=== PATIENT | male | born 1980 | race Caucasian/White ===

== ENCOUNTER 2017-08-07 14:23 | Emergency (ER) | payer SELFPAY ==
[2017-08-07 14:24] VITALS: BP 135/92; PULSE 67; RESP 16; TEMP 36.5; O2SAT 100; BMI 31.6
--- NOTE | 2017-08-07 14:28 | RAD_ITS ---
STUDY: X-RAY - RIGHT HAND REASON FOR EXAM: Male, 36 years old. Worsening pain following recent injury. TECHNIQUE: 3 view(s) of the hand. COMPARISON: None. FINDINGS: Normal radiocarpal articulation. Normal distal radioulnar joint. Questionable avulsion fracture of the triquetrum. Clinical correlation is recommended. Normal carpal articulations Normal carpometacarpal articulation of the thumb. Normal second through fifth carpometacarpal joints. Normal metacarpi. Normal metacarpophalangeal joint of the thumb. Normal interphalangeal joint of the thumb. Normal proximal and distal phalanges of the thumb. Normal metacarpophalangeal joints of the second through fifth fingers. Normal proximal and distal interphalangeal joints of the second through fifth fingers. Normal phalanges of the second through fifth fingers. The soft tissue structures are unremarkable. RAD/Hand Min 3 Views IMPRESSION: Questionable avulsion fracture of the triquetrum. Clinical correlation is recommended. Electronically Signed: Julio Renteria MD at 15:12 EST Tel [phone], Service support ,
[2017-08-07] MEDS: Naproxen 500 MG Tablet PO (15:12)
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
== END 2017-08-07 16:17 | disposition home or self-care (01) ==
PROVIDERS: Emergency Provider Emergency Medicine
DX: S62.111A Displaced fracture of triquetrum [cuneiform] bone, right wrist, initial encounter for closed fracture (principal); W23.0XXA Caught, crushed, jammed, or pinched between moving objects, initial encounter; Y93.9 Activity, unspecified; Y92.9 Unspecified place or not applicable; Y99.9 Unspecified external cause status; Z72.0 Tobacco use; Z79.899 Other long term (current) drug therapy
CPT/HCPCS: 29125; 73130; 99282

== ENCOUNTER 2018-11-09 16:20 | Emergency (ER) | payer SELFPAY ==
[2018-11-09 16:21] VITALS: BP 121/75; PULSE 83; RESP 16; TEMP 36.1; O2SAT 97; BMI 28.8
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
[2018-11-09 16:24] VITALS: O2SAT 97
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
--- NOTE | 2018-11-09 18:02 | ED.DCSUM_ITS ---
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 Today he was at work and suddenly felt the need to cough and had a prolonged episode of coughing, that resulted in a small amount of blood at the end. States this made the pain worse but he was concerned about the blood as well. During this, he felt a pop in the area that he already was having pain in. He denies any dyspnea. No pain elsewhere. Past Medical History - Allergies and Home Meds Allergies/Adverse Reactions: Allergies No Known Allergies Allergy (Verified 11/09/18 16:21) Primary Care Physician: Care Physician,No Primary [Primary Care Provider] - Surgical History: no surgical history Smoking Status: Former smoker Drugs: None - Family History Maternal Family History: Reports: Heart Disease - at young ages Review of Systems Cardiovascular: Denies: Chest pain, Palpitations Respiratory: Reports: Cough, Sputum. Denies: Dyspnea Gastrointestinal: Denies: Abdominal pain, Nausea, Vomiting Musculoskeletal: Denies: Swelling, Extremity Pain Skin: Denies: Rash, Wounds Physical Exam Vital Signs/Narrative: Vital Signs Temp Pulse Resp BP Pulse Ox 11/09/18 16:24 97 11/09/18 16:21 97 F L 83 16 121/75 H 97 Inital Vital Signs reviewed: Yes General: Well nourished, Well developed, No Acute Distress - conversing in full sentences Head: Normocephalic, Atraumatic Eyes: Perrl, EOMI Neck: Supple, Nontender Cardiovascular: Regular rate, Regular rhythm, No murmurs. Negative for: Tachycardia Respiratory: No distress, CTA bilaterally, Chest nontender Abdomen: Soft, Nontender, Nondistended, Normal bowel sounds Back: Normal Inspection, - - Point tenderness on a rib in left mid-posterior, almost lateral near axilla, thoracic wall. No crepitance or subcutaneous emphysema, no palpable step-off.. Negative for: Spinal tenderness Extremities: Nontender, No edema. Negative for: Calf Tenderness Skin: Normal color, No rash, No Trauma Neurological: Alert, Oriented x3, Cranial nerves II-XII grossly intact, Normal Strength, Normal Sensation Psychological: Normal affect, Normal Mood Diagnostic/Tx/Re-eval Clinical Impression(s) from Imaging Studies Ribs w/Chest X-Ray 11/09/18 16:23 IMPRESSION: RIBS: Normal x-ray examination of the ribs. CHEST: Normal x-ray examination of the chest. Electronically Signed: Fran Gavin MD at 16:56 EDT , Service support , - Medical Decision Making Given symptoms x-rays were obtained, there is no evidence of pneumothorax, displaced rib fracture, pulmonary contusion, or nodule/mass. He is reassured. It is possible that the minor amount of hemoptysis is unrelated to his injury, and was simply from a significant episode of bronchospasm which he described. I advised that he perform symptom Medicare with analgesics and ice as needed, he denies any further prescription and is given ibuprofen here and will follow-up. ED Disposition - Plan for ED Patient: Disposition: Home or Assisted Living Diagnosis: Contusion of rib on left side Instructions: ED Contusion Vs Minor Fx Rib Referrals: Madelaine Clemons [NON-STAFF] - 1 Week if not improving
[2018-11-09] MEDS: Ibuprofen 600 MG Tablet PO (18:12)
[2018-11-09 18:14] VITALS: BP 124/75; PULSE 78; RESP 16; O2SAT 98
== END 2018-11-09 18:17 | disposition home or self-care (01) ==
PROVIDERS: Emergency Provider Emergency Medicine
DX: S20.212A Contusion of left front wall of thorax, initial encounter (principal); R04.2 Hemoptysis; X58.XXXA Exposure to other specified factors, initial encounter; Y93.9 Activity, unspecified; Y92.9 Unspecified place or not applicable; Y99.9 Unspecified external cause status; Z79.899 Other long term (current) drug therapy; Z87.891 Personal history of nicotine dependence
CPT/HCPCS: 71101; 94760; 99282

== ENCOUNTER 2019-12-03 09:55 | Emergency (ER) | payer SELFPAY ==
[2019-12-03 09:56] VITALS: BP 125/78; PULSE 84; RESP 15; TEMP 36.8; O2SAT 97; BMI 32.6
--- NOTE | 2019-12-03 10:44 | EKG12_ITS ---
Test Reason : CP Blood Pressure : / mmHG Vent. Rate : 081 BPM Atrial Rate : 081 BPM P-R Int : 160 ms QRS Dur : 088 ms QT Int : 346 ms P-R-T Axes : 041 015 014 degrees QTc Int : 401 ms Normal sinus rhythm Normal ECG Confirmed by DIXON SALAS ([id number]), editor department ROD SANDOVAL ([id number]) on 12/06/2019 11:08:04 AM Referred By: GIACOMO Confirmed By:DIXON SALAS
--- NOTE | 2019-12-03 10:45 | ED.VIS.CHEST ---
History of Present Illness Chief Complaint: Chest Pain Informant: Patient Onset: Month(s) - 02-13 Activity at onset: Light Activity, Rest Timing: Intermittent, Lasts - brief Quality: - - Piercing Location: Right Chest - Without radiation Current Severity: Gone Maximum Severity: Severe Worsened By: Nothing. Not Worsened By: Breathing, Coughing Relieved By: Nothing Associated Symptoms: Nausea, Diaphoresis - Last night, Dyspnea - Brief gasp for air associated with each and every brief chest pain episode, Cough - Starting last night, Fever - Last night, 100.3 by his measurement; resolved this morning on multiple measurements. Negative for: Vomiting, Lightheadedness, Palpitations Narrative: Patient states he has been having these symptoms since last summer. He came in today because last night he had an episode and then he started sweating. He took a hot shower, was still sweating and he thought it was out of proportion for the shower that he took. States he was coughing a lot, nonproductive, that started yesterday 2. He had a fever of 100.3 yesterday but that resolved without treatment. He works in a warehouse, he has been having headaches that he has had in the past, they are described as piercing, central forehead occasionally radiating to the back of his head, associated with photophobia and nausea. That is been worse in the past 2 or 3 days, moderate currently. No leg pain or swelling, recent immobilization or travel, history of heart problems, and states that he was admitted here for something similar last year and had a stress test that was negative and thinks that he had an episode of the discomfort during the stress test. He has no other past medical problems. - Past Medical History (1) Depression Status: Chronic (2) Generalized anxiety disorder Status: Chronic (3) Panic attacks Status: Chronic Past Medical History - Allergies and Home Meds Allergies/Adverse Reactions: Allergies No Known Allergies Allergy (Verified 12/03/19 09:58) Primary Care Physician: Care Physician,No Primary [Primary Care Provider] - Surgical History: no surgical history Smoking Status: Former smoker Drugs: Marijuana - Family History Maternal Family History: Reports: Heart Disease - at young ages Review of Systems General: Denies: Chills, Fever, Sweats Eyes: Reports: Visual changes - bilaterally - Brief when headache was bad, seeing a couple spots. Denies: Diplopia ENT: Denies: Rhinorrhea, Sore throat Cardiovascular: Reports: Chest pain. Denies: Palpitations, Heart racing Respiratory: Reports: Dyspnea, Cough. Denies: Sputum, Dyspnea on exertion, Orthopnea Gastrointestinal: Denies: Abdominal pain, Nausea, Vomiting, Diarrhea, Melena, Hematochezia Genitourinary: Denies: Dysuria, Hematuria, Frequency Musculoskeletal: Denies: Neck pain, Back pain, Swelling, Extremity Pain Skin: Denies: Rash, Wounds Neurological: Reports: Headache. Denies: Weakness, Numbness Physical Exam Vital Signs/Narrative: Vital Signs Temp Pulse Resp BP Pulse Ox 12/03/19 09:56 98.2 F 84 15 125/78 H 97 Inital Vital Signs reviewed: Yes General: Well nourished, Well developed, No Acute Distress Head: Normocephalic, Atraumatic Eyes: Perrl, EOMI - Without pain or palsy, - - No significant photophobia ENT: Moist mucous membranes, No rhinorrhea, TM's clear, - - Posterior oropharynx is clear. Negative for: Sinus tenderness Neck: Supple, Nontender, No lymphadenopathy, No JVD Cardiovascular: Regular rate, Regular rhythm, No murmurs Respiratory: No distress, CTA bilaterally, Chest nontender Abdomen: Soft, Nontender, Nondistended, Normal bowel sounds Back: Nontender, Normal Inspection Extremities: Nontender, No edema. Negative for: Calf Tenderness Skin: Normal color, No rash, No Trauma Neurological: Alert, Oriented x3, Cranial nerves II-XII grossly intact, Normal Strength, Normal Sensation, Normal Gait Psychological: Normal affect, Normal Mood Diagnostic/Tx/Re-eval Impressions Chest X-Ray 12/03/19 11:24 IMPRESSION: Focal left basilar infiltrate. Electronically Signed: Julio Renteria, at 11:36 EDT , Service support , 12/03/19 11:24 Chest 1 View (Portable) [RAD] Stat Laboratory Results 12/03/19 12/03/19 12/03/19 11:10 11:10 11:10 WBC 6.8 RBC 4.88 Hgb 14.3 Hct 43.4 MCV 88.9 MCH 29.3 MCHC 32.9 RDW Std Deviation 40.2 RDW Coeff of Estefani 12.3 Plt Count 205 MPV 11.1 Immature Gran % (Auto) 0.100 Neut % (Auto) 70.0 Lymph % (Auto) 18.6 L [place] % (Auto) 9.8 Eos % (Auto) 0.9 Baso % (Auto) 0.6 Absolute Neuts (auto) 4.8 Absolute Lymphs (auto) 1.27 Nucleated RBC % 0 D-Dimer Quant (PE/DVT) 0.28 Sodium 139 Potassium 3.9 Chloride 104 Carbon Dioxide 30.0 Anion Gap 5 BUN 10 Creatinine 1.02 Estim Creat Clear Calc 94.07 Est GFR (MDRD) Af Amer 105 Est GFR (MDRD) Non-Af 86 BUN/Creatinine Ratio 9.8 L Glucose 98 Calcium 8.7 Troponin I < 0.015 - Rhythm Strip Rhythm Strip: Sinus Rhythm Rate: 81 Ectopy: None - EKG Initial EKG Interpretation: Sinus Rhythm, No Acute Injury Pattern - Normal EKG MONTY Risk: No Positive MONTY Elements Score: 0 - Medical Decision Making Patient had no recurrent symptoms while he was here. His work-up shows a small pneumonia in the left lower lobe, no reason to suspect this is due to coronavirus with his ancillaries and history. 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 I discussed with the [facility], currently he does not meet testing criteria for outpatient testing there. He does not need to be admitted here. Our lab is using the [facility] criteria with our limited supply of reagent. Therefore he will be placed on Levaquin and advised to follow-up with Dr. spence he does not have a primary care doctor. He will be referred to the next one on the unassigned list. With regards to his intermittent chest discomfort, his work-up is unremarkable, I do not think this is cardiac however he could be related to cardiac ectopy but he did not have the symptoms here, and we did not record any telemetry events. ED Disposition - Plan for ED Patient: Disposition: Home or Assisted Living Diagnosis: Pneumonia, Intermittent chest pain Instructions: ED Chest Pain NonCardiac, ED PNEUMONITIS Adult Prescriptions: levoFLOXacin tablet [Levaquin tablet] 750 mg PO DAILY #4 tab Prescription Printed Referrals: Ramsey Bhardwaj MD [STAFF PHYSICIAN] - 3-5 Days
[2019-12-03 11:01] VITALS: O2SAT 98
[2019-12-03 11:05] VITALS: BP 123/76; PULSE 81; RESP 15; TEMP 36.8; O2SAT 98
[2019-12-03 11:19] LABS: Absolute Lymphocyte Count 1.27 X10^3/uL (0.83-4.51); Absolute Neutrophil Count 4.8 X10^3/uL (2.0-7.7); Basophil# 0.04 X10^3/uL; Basophil% 0.6 % (0-1); Eosinophil# 0.06 X10^3/uL; Eosinophils% 0.9 % (0-5); Hematocrit 43.4 % (40-54); Hemoglobin 14.3 g/dL (13.0-16.5); Lymphocyte # 1.27 X10^3/ul (4.0); Lymphocyte % 18.6 % (19-41); Mean Corp Hgb Conc 32.9 g/dL (32-36); Mean Corpuscular Hgb 29.3 pg (27.0-32.0); Mean Corpuscular Volume 88.9 fL (80-94); Mean Platelet Vol. 11.1 fl (6.2-12.0); Monocyte# 0.67 X10^3/uL; Monocyte% 9.8 % (0-10); NRBC Flagged by Analyzer 0 % (0-5); Neutrophil # 4.79 X10^3/uL (2.7-7.7); Platelet Count 205 K/mm3 (150-450); RBC Distribution Width CV 12.3 % (11.6-14.6); RBC Distribution Width SD 40.2 fl (35.1-43.9); Red Blood Count 4.88 M/mm3 (4.6-6.2); White Blood Count 6.8 K/mm3 (4.4-11.0)
--- NOTE | 2019-12-03 11:24 | RAD_ITS ---
STUDY: X-RAY CHEST REASON FOR EXAM: Male, 39 years old. CHEST PAIN, LAST NIGHT FEVER WITH COUGH AND CHILLS TECHNIQUE: Single AP portable view of the chest. COMPARISON: Comparison is made with prior examination dated November 09, 2018. FINDINGS: EKG electrodes are seen. Focal infiltrate is seen at the left lung base. There is no demonstrated pleural abnormality. Normal size heart. Normal mediastinum and león. Normal visualized pulmonary arteries. Normal visualized aortic arch and descending thoracic aorta. Normal visualized thoracic spine. Normal visualized ribs, clavicles, and shoulders. There is no demonstrated abnormality of the visualized soft tissue structures of the upper abdomen. RAD/Chest 1 View (Portable) IMPRESSION: Focal left basilar infiltrate. Electronically Signed: Julio Renteria, at 11:36 EDT , Service support ,
[2019-12-03 11:34] LABS: Anion Gap 5 (5-15); BUN 10 mg/dL (7-18); BUN/Creat Ratio 9.8 RATIO (10-20); Calcium,Total 8.7 mg/dL (8.5-10.1); Chloride 104 mmol/L (98-107); Creatinine, Serum 1.02 mg/dL (0.70-1.30); EST Glomerular Filtration Rate 86 mL/min (>60); Est Glom Filt Rate - Afr Amer 105 mL/min (>60); Estimated Creatinine Clearance 94.07 ml/min; Glucose 98 mg/dL (74-106); Potassium 3.9 mmol/L (3.5-5.1); Sodium Level 139 mmol/L (136-145)
[2019-12-03 11:39] LABS: D-Dimer Quantitative (DVT/PE) 0.28 FEU/ug/m (0.27-0.49)
[2019-12-03] MEDS: Metoclopramide 10 MG/2 ML Vial 5 MG IV (11:51)
[2019-12-03] MEDS: Ketorolac 30 MG/ML Syringe IV (11:52)
[2019-12-03 11:54] VITALS: BP 128/74; PULSE 77; RESP 18; O2SAT 95
[2019-12-03] MEDS: levoFLOXacin 750 MG Tablet PO (12:01)
== END 2019-12-03 12:13 | disposition home or self-care (01) ==
PROVIDERS: Emergency Provider Emergency Medicine
DX: J18.9 Pneumonia, unspecified organism (principal); F32.9 Major depressive disorder, single episode, unspecified; F41.1 Generalized anxiety disorder; F41.0 Panic disorder [episodic paroxysmal anxiety]; Z79.899 Other long term (current) drug therapy; Z87.891 Personal history of nicotine dependence; Z82.49 Family history of ischemic heart disease and other diseases of the circulatory system
CPT/HCPCS: 71045; 80048; 84484; 85025; 85379; 93005; 96374; 96375; 99285; A4216

== ENCOUNTER 2020-02-28 09:26 | Emergency (ER) | payer SELFPAY ==
[2020-02-28 09:27] VITALS: BP 136/85; PULSE 77; RESP 17; TEMP 36.6; O2SAT 97; BMI 34.2
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
[2020-02-28] MEDS: Ondansetron ODT 4 MG Tablet 8 MG PO (10:01)
== END 2020-02-28 11:03 | disposition home or self-care (01) ==
PROVIDERS: Emergency Provider Emergency Medicine
DX: S06.0X0A Concussion without loss of consciousness, initial encounter (principal); S20.222A Contusion of left back wall of thorax, initial encounter; S30.0XXA Contusion of lower back and pelvis, initial encounter; S40.212A Abrasion of left shoulder, initial encounter; M54.2 Cervicalgia; V89.2XXA Person injured in unspecified motor-vehicle accident, traffic, initial encounter; Y93.9 Activity, unspecified; Y92.9 Unspecified place or not applicable; Y99.9 Unspecified external cause status; Z87.891 Personal history of nicotine dependence
CPT/HCPCS: 70450; 72125; 72170; 99283

== ENCOUNTER 2020-04-16 16:57 | Emergency (ER) | payer SELFPAY ==
[2020-04-16 16:59] VITALS: BP 135/85; PULSE 95; RESP 18; TEMP 36.8; O2SAT 98; BMI 34.4
--- NOTE | 2020-04-16 18:10 | ED.DCSUM_ITS ---
History of Present Illness Chief Complaint: Complaint Informant: Patient Onset: Days Context: Gradual Onset Timing: Waxes and wanes Current Severity: Moderate Maximum Severity: Moderate Narrative: Patient presents with dysuria, back pain, chills. He has noted difficulty urinating and pain with urination for the past couple of days. No discoloration to the urine. He reports noticing some wounds to the crotch area. No discharge from the penis. No measured fever but he has had chills. - Past Medical History (1) Generalized anxiety disorder Status: Chronic Past Medical History - Allergies and Home Meds Allergies/Adverse Reactions: Allergies No Known Allergies Allergy (Verified 04/16/20 16:58) Primary Care Physician: Care Physician,No Primary [Primary Care Provider] - Surgical History: no surgical history Lives: Spouse/ Significant Other Smoking Status: Current every day smoker - Family History Maternal Family History: Reports: Heart Disease - at young ages Review of Systems General: Reports: Chills. Denies: Fever Eyes: Denies: Visual changes - bilaterally ENT: Denies: Bilateral ear pain Cardiovascular: Denies: Chest pain Respiratory: Denies: Dyspnea, Cough Gastrointestinal: Reports: Abdominal pain. Denies: Nausea, Vomiting Genitourinary: Reports: Dysuria Musculoskeletal: Reports: Back pain Skin: Denies: Rash Hematologic: Denies: Easy bruising, Easy bleeding Allergy: Denies: Uticaria Physical Exam Vital Signs/Narrative: Vital Signs Temp Pulse Resp BP Pulse Ox 04/16/20 16:59 98.2 F 95 18 135/85 H 98 Inital Vital Signs reviewed: Yes General: Well nourished, Well developed Head: Normocephalic ENT: Moist mucous membranes Neck: Supple Cardiovascular: Regular rate, Regular rhythm Respiratory: No distress, CTA bilaterally Abdomen: Soft, Nontender : - - 3 focal areas of folliculitis over the base of the penis. No penile discharge. No tenderness over the testicles. No scrotal lesions noted. Back: CVA tenderness Extremities: Nontender Skin: Normal color Neurological: Alert, Oriented x3 Psychological: Normal affect Diagnostic/Tx/Re-eval Impressions Abdomen/Pelvis CT 04/16/20 18:43 IMPRESSION: 1. Subcentimeter probable cyst of the right hepatic lobe. 2. Colonic diverticulosis with no evidence of associated diverticulitis. 3. There is a small dense radiopacity in the cecum appearing to represent a capsule. 4. Small fat-containing left inguinal hernia. 5. There is no evidence of nephro or ureterolithiasis, hydronephrosis, or hydroureter. No free intra-abdominal or intrapelvic air, fluid, or inflammatory process is seen. Electronically Signed: Bandar Ch MD at 19:17 EDT , Service support , 04/16/20 18:43 Abdomen/Pelvis without Cont [CT] Stat Laboratory Results 04/16/20 17:10 Urine Color Yellow Urine Clarity Sl. Cloudy Urine pH 7.0 Ur Specific [place] 1.010 Urine Protein 15 H Urine Glucose (UA) Normal Urine Ketones Negative Urine Occult Blood 10 H Urine Nitrite Negative Urine Bilirubin Negative Urine Urobilinogen Normal Ur Leukocyte Esterase Negative Urine RBC 0 SEEN Urine WBC 0 SEEN Ur Squamous Epith Cells 0 SEEN Urine Bacteria 0 SEEN Urine Mucus 0 SEEN - Medical Decision Making Urinalysis does not show sign of infection. GC and Chlamydia tests were sent and are still pending at this time. Because the patient had so much back pain associated he is taken for a CT scan. This reveals no evidence of kidney stones. Patient be treated with Rocephin and doxycycline. He will also be given Pyridium to help numb the bladder. He is referred to urology for follow- up as needed. ED Disposition - Plan for ED Patient: Disposition: Home or Assisted Living Diagnosis: Urethritis, Folliculitis Instructions: Urethritis in Men Prescriptions: Doxycycline 100 mg PO BID #14 cap Transmission Status: Pending to [email or web address] Phenazopyridine HCl [Pyridium] 200 mg PO BID PRN PRN #10 tab PRN Reason: Pain Transmission Status: Pending to [facility] Referrals: Kamran Holman MD [STAFF PHYSICIAN] - As Needed
[2020-04-16 18:30] VITALS: BP 135/85; PULSE 95; RESP 18; TEMP 36.8; O2SAT 98
[2020-04-16 18:30] LABS: Bacteria 0 SEEN /hpf (None Seen); Mucous, Urine 0 SEEN /hpf (<or=2+); Red Blood Cells-Urine 0 SEEN /hpf (0-5); Squamous Epithelial Cells - UA 0 SEEN /hpf (0-5); White Blood Cells 0 SEEN /hpf (0-5)
[2020-04-16 18:33] LABS: Color, Urine Yellow (Yellow); Glucose, Dipstick Normal (Normal); Ketone-Dipstick Negative (Negative); Leukocyte Esterase-Dipstick Negative /ul (Negative); Nitrite-Dipstick Negative (Negative); Occult Blood-Urine 10 /ul (Negative); Protein-Dipstick 15 mg/dl (Negative); Urine Bilirubin Dipstick Negative (Negative); Urine Clarity Sl. Cloudy (Clear); Urine Urobilinogen Normal (Normal)
--- NOTE | 2020-04-16 18:43 | CT_ITS ---
STUDY: CT ABDOMEN AND PELVIS WITHOUT CONTRAST REASON FOR EXAM: Male, 39 years old. DYSURIA AND BILATERAL FLANK PAIN. PRIOR HERNIA SURGERY RADIATION DOSAGE (If Supplied By Facility): CTDIvol = ( 14.97 ) mGy, DLP = ( 759.23 ) mGycm TECHNIQUE: Transaxial images were obtained from the dome of the diaphragm to the symphysis pubis without oral contrast, and without intravenous contrast. Sagittal and coronal images were reconstructed. Individualized dose optimization techniques were used for this CT. COMPARISON: None. FINDINGS: The visualized lung bases are unremarkable. The visualized portions of the heart are within normal limits. There is a subcentimeter probable cyst of the right hepatic lobe. The gallbladder is contracted. Normal spleen. Normal pancreas. Normal bilateral adrenal glands. Normal right kidney. Normal left kidney. Normal visualized stomach. Normal small intestine. There is colonic diverticulosis with no evidence of associated diverticulitis. There is a small dense radiopacity in the cecum. The appendix is visualized and appears normal. Normal abdominal aorta. Normal inferior vena cava. Normal retroperitoneum. Normal urinary bladder. There is a fat-containing left inguinal hernia. Normal osseous structures. CT/Abdomen/Pelvis without Cont IMPRESSION: 1. Subcentimeter probable cyst of the right hepatic lobe. 2. Colonic diverticulosis with no evidence of associated diverticulitis. 3. There is a small dense radiopacity in the cecum appearing to represent a capsule. 4. Small fat-containing left inguinal hernia. 5. There is no evidence of nephro or ureterolithiasis, hydronephrosis, or hydroureter. No free intra-abdominal or intrapelvic air, fluid, or inflammatory process is seen. Electronically Signed: Bandar Ch MD at 19:17 EDT , Service support ,
[2020-04-16] MEDS: Doxycycline 100 MG CAPSULE PO (19:55)
[2020-04-16] MEDS: Phenazopyridine 95 MG Tablet 190 MG PO (19:55)
[2020-04-16 20:00] LABS: Chlamydia Trachomatis by PCR Negative (Negative); Neisserai gonorrhoeae by PCR Negative (Negative); Probe Check PASS; Sample Adequacy Control PASS; Specimen Processing Control PASS
[2020-04-16] MEDS: Ceftriaxone 500 MG Vial 250 MG IM (20:07)
[2020-04-16] MEDS: Naproxen 500 MG Tablet PO (20:07)
[2020-04-16 20:11] VITALS: TEMP 38.1
== END 2020-04-16 20:12 | disposition home or self-care (01) ==
PROVIDERS: Emergency Provider Emergency Medicine
DX: N34.2 Other urethritis (principal); L73.9 Follicular disorder, unspecified; M54.9 Dorsalgia, unspecified; F17.200 Nicotine dependence, unspecified, uncomplicated
CPT/HCPCS: 74176; 81001; 87491; 87591; 96372; 99283

== ENCOUNTER 2020-04-19 16:20 | Emergency (ER) | payer SELFPAY ==
[2020-04-19 16:22] VITALS: BP 128/74; PULSE 86; RESP 17; TEMP 36.3; O2SAT 96; BMI 35.7
[2020-04-19 16:24] VITALS: BP 128/74; PULSE 85; RESP 17; TEMP 36.3; O2SAT 96
--- NOTE | 2020-04-19 16:41 | ED.VIS.GEN ---
History of Present Illness Chief Complaint: Complaint Informant: Patient Narrative: 39-year-old male with no significant past medical history presents with concern for dysuria. States is been present for 4 to 5 days. States it is intermittent in nature. States that he previously had back pain when he was seen here in the emergency department but that is since resolved. Patient was treated with doxycycline and Rocephin with concern for STI. Patient has since had negative gonorrhea and chlamydia. Patient states that he did have lesions towards the base of his penis which he felt were folliculitis and did drain a small amount of clearish white fluid. States that they have since crusted over. Denies any fever, chills, abdominal pain. Denies any penile discharge. Denies any scrotal pain. Past Medical History - Allergies and Home Meds Allergies/Adverse Reactions: Allergies No Known Allergies Allergy (Verified 04/19/20 16:21) Primary Care Physician: Care Physician,No Primary [Primary Care Provider] - Prior records reviewed: Yes Past Medical History: None Surgical History: no surgical history Lives: With Family Smoking Status: Former smoker Alcohol: None Drugs: None - Family History Maternal Family History: Reports: Heart Disease - at young ages Review of Systems General: Denies: Chills, Fever, Sweats Eyes: Denies: Visual changes - bilaterally, Diplopia ENT: Denies: Rhinorrhea, Sore throat Cardiovascular: Denies: Chest pain, Palpitations Respiratory: Denies: Dyspnea, Cough, Dyspnea on exertion Gastrointestinal: Denies: Abdominal pain, Nausea, Vomiting, Diarrhea, Melena, Hematochezia Genitourinary: Reports: Dysuria. Denies: Hematuria, Frequency Musculoskeletal: Denies: Back pain, Extremity Pain Skin: Denies: Rash, Wounds Neurological: Denies: Headache, Weakness, Numbness Physical Exam Vital Signs/Narrative: Vital Signs Temp Pulse Resp BP Pulse Ox 04/19/20 16:24 97.3 F L 85 17 128/74 H 96 04/19/20 16:22 97.3 F L 86 17 128/74 H 96 General: Well nourished, Well developed, No Acute Distress Head: Normocephalic, Atraumatic Eyes: Perrl, EOMI ENT: Moist mucous membranes, No rhinorrhea Neck: Supple, Nontender Cardiovascular: Regular rate, Regular rhythm, No murmurs Respiratory: No distress, CTA bilaterally, Chest nontender Abdomen: Soft, Nontender, Nondistended, Normal bowel sounds : - - Crusted ulcerous lesions at the base of the penis. No abscess or active drainage. Back: Nontender, Normal Inspection Extremities: Nontender, No edema Skin: Normal color, No rash Neurological: Alert, Oriented x3, Cranial nerves II-XII grossly intact, Normal Strength, Normal Sensation Psychological: Normal affect, Normal Mood Diagnostic/Tx/Re-eval Laboratory Data 04/19/20 17:45 Urine Color June Urine Clarity Clear Urine pH 6.0 Ur Specific [place] 1.020 Urine Protein 15 H Urine Glucose (UA) Normal Urine Ketones 5 H Urine Occult Blood 10 H Urine Nitrite Positive H Urine Bilirubin 3 H Urine Urobilinogen 8 H Ur Leukocyte Esterase Negative Urine RBC 0-5 SEEN Urine WBC 0-5 SEEN Ur Squamous Epith Cells 0 SEEN Urine Bacteria 1+ Urine Mucus 0 SEEN - Medical Decision Making Appears well and nontoxic. Vital signs within normal limits. Patient does have lesions at the base of his penis concerning for HSV versus syphilis. Patient be given injection 2,400,000 units of penicillin G as well as started on acyclovir. Patient also has a urinalysis positive for nitrites. Patient will be started on Keflex and advised to stop taking his doxycycline. Urine will be sent for culture. Patient asked to return for any abdominal pain, fever, chills. Advised to abstain from sexual activity until his results can be reported for his HIV, syphilis, and HSV. Patient agreeable and discharged home in stable condition. Impression: 1. Dysuria 2. Penile lesions 3. UTI ED Disposition - Plan for ED Patient: Disposition: Home or Assisted Living Instructions: ED Urethritis Infec Vs Inflam Adult Male Prescriptions: Acyclovir 1 tab PO TID #21 tab Prescription Printed Cephalexin [Keflex] 500 mg PO Q6 #40 cap Prescription Printed Referrals: Storm Anaya MD [STAFF PHYSICIAN] - 2 Days Additional Instructions: Please also keep appointment with urologist.
[2020-04-19 17:53] LABS: Mucous, Urine 0 SEEN /hpf (<or=2+); Squamous Epithelial Cells - UA 0 SEEN /hpf (0-5)
[2020-04-19 18:09] LABS: Color, Urine Amber (Yellow); Glucose, Dipstick Normal (Normal); Ketone-Dipstick 5 mg/dl (Negative); Leukocyte Esterase-Dipstick Negative /ul (Negative); Nitrite-Dipstick Positive (Negative); Occult Blood-Urine 10 /ul (Negative); Protein-Dipstick 15 mg/dl (Negative); Urine Clarity Clear (Clear); Urine Urobilinogen 8 mg/dl (Normal)
[2020-04-19 18:24] LABS: Urine Bilirubin Dipstick 3 mg/dL (Negative)
[2020-04-19 18:33] LABS: Bacteria 1+ /hpf (None Seen); Red Blood Cells-Urine 0-5 SEEN /hpf (0-5); White Blood Cells 0-5 SEEN /hpf (0-5)
[2020-04-19] MEDS: Cephalexin 250 MG Capsule 500 MG PO (19:32)
[2020-04-19 19:46] LABS: HIV - WCH Non-Reactive (Nonreactive)
[2020-04-19] MEDS: Acyclovir 200 MG Capsule 400 MG PO (19:52)
[2020-04-19] MEDS: Penicillin G Benzathine 2.4 MU/4 ML Syringe IM (19:53)
[2020-04-19 19:58] VITALS: BP 126/68; PULSE 81; RESP 18; O2SAT 96
[2020-04-20 01:45] LABS: Rapid Plasmin Reagin (RPR) NONREACTIVE (NONREACTIVE)
[2020-04-22 20:07] LABS: HSV 1 By PCR Negative (Negative)
[2020-04-23 09:55] LABS: HSV 2 By PCR Positive (Negative)
== END 2020-04-19 20:11 | disposition home or self-care (01) ==
PROVIDERS: Emergency Provider Emergency Medicine
DX: N39.0 Urinary tract infection, site not specified (principal); N48.9 Disorder of penis, unspecified; Z87.891 Personal history of nicotine dependence
CPT/HCPCS: 36415; 81001; 86592; 86703; 87086; 87529; 96372; 99281; 99283

== ENCOUNTER 2020-05-30 01:59 | Emergency (ER) | payer SELFPAY ==
[2020-05-30 02:01] VITALS: BP 132/95; PULSE 78; RESP 19; TEMP 35.8; O2SAT 99; BMI 34.9
--- NOTE | 2020-05-30 02:08 | EKG12_ITS ---
Test Reason : GEN ILL Blood Pressure : / mmHG Vent. Rate : 076 BPM Atrial Rate : 076 BPM P-R Int : 180 ms QRS Dur : 092 ms QT Int : 368 ms P-R-T Axes : 041 008 006 degrees QTc Int : 414 ms Normal sinus rhythm Normal ECG Confirmed by MAGDA BRICEÑO, SCOTT ([id number]), graphics editor LYN MAGDALENO ([id number]) on 05/31/2020 10:51:15 AM Referred By: JAMES Confirmed By:SCOTT MAN MD
--- NOTE | 2020-05-30 02:08 | RAD_ITS ---
STUDY: X-RAY CHEST REASON FOR EXAM: Male, 39 years old. C/O DYSPNEA AND CP WHEN TRYING TO GO TO SLEEP FOR THE PAST 2 WEEKS TECHNIQUE: PA and lateral views of the chest. COMPARISON: 12/03/2019 FINDINGS: The lungs are clear and expanded. There is no demonstrated pleural abnormality. Normal size heart. Normal mediastinum and león. Normal visualized pulmonary arteries. Normal visualized aortic arch and descending thoracic aorta. Normal visualized thoracic spine. Normal visualized ribs, clavicles, and shoulders. There is no demonstrated abnormality of the visualized soft tissue structures of the upper abdomen. RAD/Chest PA and Lateral IMPRESSION: Normal x-ray examination of the chest. Electronically Signed: Jagdish Quiles DO at 2:57 EST Tel , Service support ,
--- NOTE | 2020-05-30 02:09 | ED.VIS.GEN ---
History of Present Illness Chief Complaint: General Illness Informant: Patient Narrative: Stated for greater than a year he has intermittent chest twinges at night when he lays down. Today it happened 5 times. Is only when he lays down at nighttime to relax. He stated he will catch his breathing for second and develop a chest twinge that goes away. Wanted to make sure his heart was okay. He has had ER evaluations for this in the past. He has not worn a Holter monitor. Has not seen a specialist. Denies any cardiac history. Denies any symptoms currently. No home treatment. Does have a history of anxiety but does not think it is related to that. Seems to be when he sits back or lays flat. Only last for a second. - Past Medical History (1) Chest pain Status: Acute (2) Depression Status: Chronic (3) Generalized anxiety disorder Status: Chronic (4) Panic attacks Status: Chronic (5) Unable to control anger Status: Chronic Past Medical History - Allergies and Home Meds Allergies/Adverse Reactions: Allergies No Known Allergies Allergy (Verified 05/30/20 01:59) Primary Care Physician: Care Physician,No Primary [Primary Care Provider] - Prior records reviewed: Yes Past Medical History: - - See problem list Surgical History: no surgical history Smoking Status: Current some day smoker Alcohol: None Drugs: None - Family History Maternal Family History: Reports: Heart Disease - at young ages Review of Systems General: Denies: Chills, Fever, Sweats Eyes: Denies: Visual changes - bilaterally, Diplopia ENT: Denies: Rhinorrhea, Sore throat Cardiovascular: Reports: Chest pain. Denies: Palpitations Respiratory: Denies: Dyspnea, Cough, Dyspnea on exertion Gastrointestinal: Denies: Abdominal pain, Nausea, Vomiting, Diarrhea, Melena, Hematochezia Genitourinary: Denies: Dysuria, Hematuria, Frequency Musculoskeletal: Denies: Back pain, Extremity Pain Skin: Denies: Rash, Wounds Neurological: Denies: Headache, Weakness, Numbness Physical Exam Vital Signs/Narrative: Vital Signs Temp Pulse Resp BP Pulse Ox 05/30/20 02:01 96.5 F L 78 19 H 132/95 H 99 General: Well nourished, Well developed, No Acute Distress Head: Normocephalic, Atraumatic Eyes: Perrl, EOMI ENT: Moist mucous membranes, No rhinorrhea Neck: Supple, Nontender Cardiovascular: Regular rate, Regular rhythm, No murmurs Respiratory: No distress, CTA bilaterally, Chest nontender Abdomen: Soft, Nontender, Nondistended, Normal bowel sounds Back: Nontender, Normal Inspection Extremities: Nontender, No edema Skin: Normal color, No rash Neurological: Alert, Oriented x3, Cranial nerves II-XII grossly intact, Normal Strength, Normal Sensation Psychological: Normal affect, Normal Mood Diagnostic/Tx/Re-eval - Medical Decision Making Given ibuprofen. Chest x-ray and EKG obtained. This x-ray and EKG showed nothing acute. EKG shows normal sinus rhythm at a rate of 76 with no ischemia or arrhythmia by my interpretation. Chest x-ray was read by myself as an interpretation of negative. Patient will follow-up as an outpatient for intermittent chest twinges. I do not feel this is cardiac PE or dissection or other emergent cause ED Disposition - Plan for ED Patient: Disposition: Home or Assisted Living Diagnosis: Chest pain at rest Instructions: ED Chest Pain NonCardiac Referrals: Storm Anaya MD [STAFF PHYSICIAN] -
[2020-05-30] MEDS: Ibuprofen 400 MG Tablet 800 MG PO (02:13)
[2020-05-30 03:06] VITALS: BP 117/85; PULSE 74; RESP 19; O2SAT 96
== END 2020-05-30 03:11 | disposition home or self-care (01) ==
PROVIDERS: Emergency Provider Emergency Medicine
DX: R07.9 Chest pain, unspecified (principal); F17.200 Nicotine dependence, unspecified, uncomplicated
CPT/HCPCS: 71046; 93005; 99283

== ENCOUNTER 2021-03-11 15:43 | Emergency (ER) | payer SELFPAY ==
[2021-03-11 15:44] VITALS: BP 141/92; PULSE 77; RESP 16; TEMP 36.8; O2SAT 98; BMI 32.3
--- NOTE | 2021-03-11 15:49 | RAD_ITS ---
EXAM: XR CHEST, 1 VIEW : 1980 CLINICAL INDICATION: cough TECHNIQUE: Frontal view of the chest. This report was created using [id number] report generation technology. COMPARISON: 05/30/2020 FINDINGS: LUNGS AND PLEURAL SPACES: Unremarkable. No consolidation or edema. No pneumothorax. No effusion. HEART: Unremarkable. Cardiac silhouette not enlarged. MEDIASTINUM: Central airways and mediastinal contour are unremarkable. BONES/JOINTS: Unremarkable. SOFT TISSUES: Unremarkable. RAD/Chest 1 View (Portable) IMPRESSION: No radiographic evidence of acute cardiopulmonary disease. at 1645 Reported and signed by: Julius Zimmer MD Electronically Signed: Julius Zimmer MD at 16:44 EDT Tel , Service support ,
--- NOTE | 2021-03-11 17:10 | EDS_ITS ---
HPI History of Present Illness Chief Complaint: Cold Sx Informant: patient Narrative Narrative: Patient is a 40-year-old male presenting with concern for Covid. Patient states his girlfriend started having Covid symptoms yesterday including lack of taste and smell. They have been at the hospital visiting his girlfriend's mother and were around patients that had Covid. He is not his Covid vaccine. Patient states that he has had headache for the past few days and some mild shortness of breath. He has a dry cough. He notes that he has a little bit of a catch in his breathing and discomfort. He denies any fever but is been feeling warm. No nausea or vomiting. No other complaints at this time. [facility] Home Medications NK 05/30/20 [History Last Taken Unknown] Allergy/AdvReac Type Severity Reaction Status Date / Time No Known Allergies Allergy Verified 03/11/21 15:43 Social History Smoking Status: Current some day smoker tobacco type: cigarettes ROS ROS ED Constitutional Constitutional ED: Reports other Details: Feeling warm ; Denies chills or fever(s) Eyes Eyes: Denies blurry vision or change in vision ENT ENT ED: Denies ear pain, rhinorrhea or sore throat Cardiovascular Cardiovascular: Reports chest pain; Denies palpitations Respiratory/Chest Respiratory/Chest: Reports cough and dyspnea; Denies dyspnea on exertion or sputum Gastrointestinal Gastrointestinal: Denies abdominal pain, nausea or vomiting Genitourinary Genitourinary ED: Denies dysuria or hematuria Musculoskeletal Musculoskeletal: Denies arthralgias or myalgias Integumentary Denies rash Neurologic Neurologic: Reports headache(s); Denies weakness Psychiatric Psychiatric: Denies anxiety or depression EXAM Physical Exam Const Vital Signs: 03/11/21 15:44 Temperature 98.3 F Temperature Source Temporal Pulse Rate 77 Respiratory Rate 16 Blood Pressure 141/92 H Blood Pressure Mean 108 Pulse Ox 98 Oxygen Delivery Method Room Air Positive well nourished, well developed and no apparent distress General Appearance ED: well developed HEENT Reports normocephalic atraumatic Nose: no nasal discharge External Ear: external ears normal Mouth ED: Yes moist mucous membranes normal Eyes PERRL and EOMs intact bilaterally Neck full ROM and no meningeal signs Chest Wall inspection of chest normal Resp normal respiratory effort and normal air movement Cardio regular rate and regular rhythm GI normal to inspection, nondistended, normoactive bowel sounds Extremity normal to inspection and full ROM Extremity Narrative: Mild crepitus with range of motion of the AC joint of the right shoulder, patient states it has been going on for 6 years Neuro oriented x3 and no focal motor deficits Psych mental status grossly normal and thought process normal Skin no rashes or lesions noted and no wounds MDM MDM MDM Narrative Medical decision making narrative: Patient evaluated for concern for Covid. His vital signs are normal except for mild hypertension. Exam is pretty benign. Chest x-rays not show any acute process. Covid test is negative. Patient be discharged home with quarantine precautions and to get retested at day 5 through 7 of symptoms if he still concern for Covid. I suspect he likely just has a viral illness is causing his symptoms. Radiography Chest X-Ray - ED: 1 View, Read by ED Physician, Read by Radiologist and No Acute Disease Diagnostic Testing: Radiology Impression Chest X-Ray 03/11/21 15:49 IMPRESSION: No radiographic evidence of acute cardiopulmonary disease. at 1645 Reported and signed by: Julius Zimmer MD Electronically Signed: Julius Zimmer MD at 16:44 EDT Tel , Service support , Discharge Plan Triage Chief Complaint: Cold Sx ED Provider: Gris Pena Dx/Rx/DC Orders Clinical Impression: Encounter for laboratory testing for COVID-19 virus, Viral respiratory illness Instructions: Coronavirus Disease 2019 (COVID-19): Caring for Yourself or Others Prescriptions: No Action NK RF: 0 Primary Care Provider: Care Physician,No Primary Referrals: Bella Hassan MD [STAFF PHYSICIAN] - Care Physician,No Primary [Primary Care Provider] - Activity Restrictions/Additional Instructions: Your Covid test was negative today. If you continue to have symptoms please continue to quarantine and retest at day 5-7 with symptoms as is possibly could have a false negative today. Return with any worsening concerns. Disposition Disposition: Home, Self Care
[2021-03-11 17:39] VITALS: BP 138/69; PULSE 72; RESP 16; O2SAT 98
== END 2021-03-11 17:40 | disposition home or self-care (01) ==
PROVIDERS: Emergency Provider Emergency Medicine
DX: Z20.822 Contact with and (suspected) exposure to COVID-19 (principal); J98.9 Respiratory disorder, unspecified; F17.210 Nicotine dependence, cigarettes, uncomplicated
CPT/HCPCS: 71045; 87426; 99282

== ENCOUNTER 2022-06-02 14:16 | Emergency (ER) | payer SELFPAY ==
[2022-06-02 14:17] VITALS: BP 143/86; PULSE 100; RESP 16; TEMP 37.1; O2SAT 100; BMI 34.2
--- NOTE | 2022-06-02 14:48 | EX.ED.DYSGE1 ---
HPI <ZACH Seo Last Filed: 06/02/22 17:22> History of Present Illness Chief Complaint: Other, Pain/Inj Narrative Narrative: 41-year-old male with no past medical history woke up with body aches, nausea, and sore throat this morning at 1 AM. He went to urgent care and they sent off a COVID test but sent him to the ER for a chest x-ray. He states this is because his chest hurt when I push on it but he does not really have a cough or shortness of breath. He is nauseous but has no vomiting, abdominal pain, or diarrhea. PFSH <ZACH Seo Last Filed: 06/02/22 17:22> PFSH Home Medications ondansetron 4 mg disintegrating tablet 4 mg PO Q8H PRN PRN Nausea #10 tabs 06/02/22 [Rx Last Taken Unknown] Allergy/AdvReac Type Severity Reaction Status Date / Time No Known Allergies Allergy Verified 06/02/22 14:42 Surgical History History of hernia repair History of tonsillectomy Social History Smoking Status: Current some day smoker tobacco type: cigarettes ROS <ZACH Seo Last Filed: 06/02/22 17:22> ROS ED ROS Narrative Constitutional: Positive for fever, chills, malaise. Eyes: Negative for visual change. ENT: Positive for sore throat. Negative for rhinorrhea. CVS: Negative for palpitations, chest pain, syncope. Respiratory: Negative for shortness of breath, cough, orthopnea. GI: Positive for nausea. Negative for abdominal pain, vomiting, diarrhea, constipation, melena, hematochezia. : Negative for dysuria, hematuria or frequency. Neuro: Negative for headache, motor/sensory dysfunction. Skin: Negative for rash, abscess, or wound. Musc: Positive for body aches. Heme: Negative for easy bruising, bleeding, lymphadenopathy. EXAM <ZACH Seo Last Filed: 06/02/22 17:22> Physical Exam Narrative Exam Narrative: CONST: Patient sitting in no acute distress. EYES: Normal inspection. ENT: Normal oropharynx, moist mucous membranes. NECK: Normal inspection. No meningismus. RESP: No respiratory distress, CTAB. CVS: Regular rate and rhythm, no murmur, no gallop. ABD: Soft and nontender, no guarding or rebound, nondistended. SKIN: Color normal, no rash, warm, dry, intact. EXTREMITIES: Normal appearance, no pedal edema. NEURO: Oriented x4. PSYCH: Normal affect. Const Vital Signs: 06/02/22 14:17 06/02/22 14:40 Temperature 98.8 F Temperature Source Temporal Pulse Rate 100 Respiratory Rate 16 Respiratory Effort Normal Non-Labored Respiratory Pattern Normal Blood Pressure 143/86 H Blood Pressure Mean 105 Pulse Ox 100 Oxygen Delivery Method Room Air <Dr. Deniz Mcintyre MD - Last Filed: 06/02/22 17:18> Physical Exam Const Vital Signs: 06/02/22 14:17 06/02/22 14:40 Temperature 98.8 F Temperature Source Temporal Pulse Rate 100 Respiratory Rate 16 Respiratory Effort Normal Non-Labored Respiratory Pattern Normal Blood Pressure 143/86 H Blood Pressure Mean 105 Pulse Ox 100 Oxygen Delivery Method Room Air MDM <ZACH Seo - Last Filed: 06/02/22 17:22> [facility] Narrative Medical decision making narrative: Patient presents with myalgias, sore throat, nausea that started this morning. He appears well and nontoxic. Heart rate is 100 with otherwise normal vital signs. His exam is benign. He reports already having a COVID/flu test done this morning at urgent care which is pending. He was treated symptomatically here with Toradol and Zofran and will be prescribed an antiemetic for home with instructions on treating a viral illness. He was discharged in stable condition. <Dr. Deniz Mcintyre MD - Last Filed: 06/02/22 17:18> [facility] Narrative Medical decision making narrative: Patient presents with myalgias, sore throat, nausea that started this morning. He appears well and nontoxic. Heart rate is 100 with otherwise normal vital signs. His exam is benign. He reports already having a COVID/flu test done this morning at urgent care which is pending. He was treated symptomatically here with Toradol and Zofran and will be prescribed an antiemetic for home with instructions on treating a viral illness. I have personally performed a face to face assessment of the patient and have reviewed the RADHA Note. I performed a substantive portion of the visit including all aspects of the following. My gallego findings include: History is [41-year-old male with body aches today lower back pain. Seen at urgent care had a COVID test done awaiting results. Evaluate the patient with our physician financial planning assistant.] Exam is [41-year-old male vital signs stable afebrile. Pulse ox high percent on room air. H EENT exam unremarkable. Neck nontender. No lymphadenopathy. Lungs clear to auscultation bilaterally. Heart regular rhythm no murmur. Abdomen soft nontender. Moving all 4 extremities. Neurovascular intact. Back nontender. Neurologically is awake alert with no focal motor deficits. Very benign exam.] Medical Decision Making [clinically patient has a viral syndrome. He already had a COVID test done at an urgent care he is awaiting those results. He was treated here with Toradol and Zofran by our physician financial planning assistant. He is feeling improved. He is comfortable being discharged home. Treated symptomatically with fluids, rest, Tylenol Motrin. And Zofran as needed.] Other additions or changes: [None] Discharge Plan Triage Chief Complaint: Other, Pain/Inj ED Midlevel Provider: Stephanie Sterling ED Provider: Deniz Mcintyre Dx/Rx/DC Orders Clinical Impression: Acute viral syndrome Instructions: ED Viral Syndrome (Adult) Prescriptions: New ondansetron 4 mg tablet,disintegrating 4 mg PO Q8H PRN PRN (Reason: Nausea) Qty: 10 0RF Primary Care Provider: Care Physician,No Primary Referrals: Care Physician,No Primary [Primary Care Provider] - Activity Restrictions/Additional Instructions: Your symptoms are consistent with a viral illness which is treated with rest, fluids, Tylenol and ibuprofen. You can take 1000 mg of Tylenol every 6 hours and if you need additional relief ibuprofen 600 mg with this. I prescribed Zofran to take as needed for nausea or vomiting. Return if you have difficulty breathing or symptoms worsen. Disposition Disposition: Home, Self Care
[2022-06-02] MEDS: Ketorolac 15 MG/ML Vial IV (15:22)
[2022-06-02] MEDS: Ondansetron ODT 4 MG Tablet PO (15:22)
[2022-06-02 17:30] VITALS: PULSE 94; RESP 17; O2SAT 100
== END 2022-06-02 17:31 | disposition home or self-care (01) ==
PROVIDERS: Emergency Provider Emergency Medicine; Visit Provider Emergency Medicine
DX: B34.9 Viral infection, unspecified (principal); J02.9 Acute pharyngitis, unspecified; R11.0 Nausea; F17.210 Nicotine dependence, cigarettes, uncomplicated
CPT/HCPCS: 96374; 99283

== ENCOUNTER 2023-01-27 18:37 | Emergency (ER) | payer SELFPAY ==
[2023-01-27 18:39] VITALS: BP 121/80; PULSE 80; RESP 14; TEMP 36.7; O2SAT 94; BMI 35.3
--- NOTE | 2023-01-27 18:49 | ED.RN ---
PER Alex JORGE RN. BITE FORM NOT NEEDED FOR SPIDER BITE.
[2023-01-27 18:50] VITALS: BP 121/80; PULSE 80; RESP 14; TEMP 36.7; O2SAT 94
--- NOTE | 2023-01-27 19:00 | EX.ED.VISEXT ---
HPI History of Present Illness Chief Complaint: Bite Detail of Chief Complaint: Lump on left arm Informant: patient Narrative Narrative: Patient presents to the emergency department with concern for spider bite to his left forearm. Patient states that he woke up this morning and noticed a lump on his left forearm. Patient states that years ago he had a spider bite that required hospitalization and he became very sick from it so he wanted to catch it early. Patient states that he was at the [facility] yesterday and its possible he may have been bitten by something there but does not recall an exact time or bite. Patient bumped the forearm today noticed the discomfort and then noticed the swelling. Denies any fevers or chills or sweats. Patient denies illicit drug use or IV drug use. ROS ROS ED Review of Systems ROS Unobtainable: other Constitutional Constitutional ED: Reports lethargy; Denies chills, fever(s), sweats or weight loss Eyes Eyes: Denies blurry vision, change in vision or diplopia ENT ENT ED: Denies rhinorrhea or sore throat Cardiovascular Cardiovascular: Denies chest pain, orthopnea or racing heartbeat Respiratory/Chest Respiratory/Chest: Denies cough, dyspnea, dyspnea on exertion, orthopnea or sputum Gastrointestinal Gastrointestinal: Denies abdominal pain, diarrhea, nausea or vomiting Genitourinary Genitourinary ED: Denies dysuria, hematuria or urinary frequency Musculoskeletal Musculoskeletal: Reports other Details: Left forearm swelling ; Denies arthralgias, back pain, myalgias or neck pain Integumentary Denies abscess, Abrasions or rash Neurologic Neurologic: Denies headache(s) or weakness Psychiatric Psychiatric: Denies anxiety, depression or suicidal thoughts Endocrine Endocrinology: Denies polydipsia, polyphagia or polyuria Hematologic/Lymphatic Hematologic/Lymphatic: Denies easy bleeding, easy bruising or lymphadenopathy Allergic/Immunologic Allergic/Immunologic ED: Denies mouth swelling, tongue swelling or urticaria PFSH PFSH Home Medications ondansetron 4 mg disintegrating tablet 4 mg PO Q8H PRN PRN Nausea #10 tabs 06/02/22 [Rx Last Taken Unknown] cephalexin 500 mg capsule 500 mg PO Q6 #40 CAPSULES 01/27/23 [Rx Last Taken Unknown] doxycycline monohydrate 50 mg capsule 50 mg PO DAILY 01/27/23 [History Last Taken Unknown] Allergy/AdvReac Type Severity Reaction Status Date / Time No Known Allergies Allergy Verified 01/27/23 18:39 Surgical History History of hernia repair History of tonsillectomy Social History Smoking Status: Current some day smoker tobacco type: cigarettes EXAM Physical Exam Const Vital Signs: 01/27/23 18:39 01/27/23 18:50 Temperature 98.1 F 98.1 F Temperature Source Temporal Oral Pulse Rate 80 80 Respiratory Rate 14 14 Blood Pressure 121/80 H 121/80 H Blood Pressure Mean 93 93 Pulse Ox 94 94 Oxygen Delivery Method Room Air Room Air Positive well nourished and well developed General Appearance ED: well developed and NAD HEENT Reports TM's clear and moist mucous membranes normocephalic and atraumatic; Negative for trauma or tenderness Tympanic Membrane ED: Yes TM's clear Eyes PERRL and EOMs intact bilaterally General Eye ED: Negative for pale conjunctiva or scleral icterus Neck no lymphadenopathy, supple and no JVD General: Negative for tenderness Chest Wall inspection of chest normal and palpation of chest normal Chest: Negative for tenderness Resp normal respiratory effort and clear to auscultation bilaterally Effort and Inspection: Negative for respiratory distress or pain with movement Auscultation: Negative for rhonchi, wheezes or diminished lung sounds Cardio regular rate, regular rhythm, S1 normal heart sound, S2 normal heart sound and no murmurs Peripheral Pulses: pulses 2+ throughout GI normal to inspection, nondistended, normoactive bowel sounds, soft to palpation, non-tender, non-distended and no masses Back/Spine no CVA tenderness and no thoracic nor lumbar tenderness Extremity normal to inspection Extremity Narrative: Left forearm-there is a small soft tissue swelling measuring approximately 2 cm in diameter over the dorsal aspect of the left forearm. Nontender to palpation. Minimal erythema. No fluctuance. No significant cellulitic changes. Neurovascular intact distally. General Extremety ED: Negative for edema General Extremity: Negative for edema Neuro oriented x3, CN's II-XII intact bilaterally, no sensory deficits noted and gait normal Sensorium / Orientation: awake, alert, oriented to person, oriented to place and oriented to time Motor Exam: strength 5/5 throughout and strength abnormal Psych mental status grossly normal Skin no rashes or lesions noted and no wounds MDM MDM MDM Narrative Medical decision making narrative: Patient with soft tissue swelling to the forearm. This could represent an insect bite. Clinically I do not feel this is an abscess. This does not require any type of I&D. Will cover with Keflex. Advised to follow-up with primary care physician within next 3 to 5 days. He is to return if increasing pain, redness, swelling, purulent drainage, fever, or condition worsening way. Discharge Plan Triage Chief Complaint: Bite ED Provider: Hitesh Earl Dx/Rx/DC Orders Clinical Impression: Insect bite Instructions: ED Insect Bite Prescriptions: New cephalexin [cephalexin] 500 mg capsule 500 mg PO Q6 Qty: 40 0RF No Action ondansetron 4 mg tablet,disintegrating 4 mg PO Q8H PRN PRN (Reason: Nausea) Qty: 10 0RF doxycycline monohydrate 50 mg capsule 50 mg PO DAILY Patient Comments: TAKE 1 CAPSULE BY MOUTH ONCE DAILY WITH FOOD Primary Care Provider: Care Physician,No Primary Referrals: Nury Soto MD [Med Staff - Wheel Borer] - 3-5 Days Care Physician,No Primary [Primary Care Provider] - Disposition Disposition: Home, Self Care Discharge Date/Time: 01/27/23 19:17
[2023-01-27] MEDS: Cephalexin 250 MG Capsule 500 MG PO (19:15)
== END 2023-01-27 19:17 | disposition home or self-care (01) ==
LOC: ED 19:13
PROVIDERS: Emergency Provider Emergency Medicine; Visit Provider Emergency Medicine
DX: S50.862A Insect bite (nonvenomous) of left forearm, initial encounter (principal); M79.89 Other specified soft tissue disorders; W57.XXXA Bitten or stung by nonvenomous insect and other nonvenomous arthropods, initial encounter; Y92.828 Other wilderness area as the place of occurrence of the external cause; F17.210 Nicotine dependence, cigarettes, uncomplicated
CPT/HCPCS: 99283

== ENCOUNTER 2024-06-25 11:33 | Emergency (ER) | payer SELFPAY ==
[2024-06-25 11:33] VITALS: BP 122/64; PULSE 78; RESP 16; TEMP 36.1; O2SAT 98; BMI 35.4
--- NOTE | 2024-06-25 11:40 | EX.ED.DYSGE1 ---
HPI History of Present Illness Chief Complaint: Nausea/Vomiting Informant: patient Onset/Context/Timing Onset: Today Context: Sudden Onset Timing: Intermittent Quality: Seeing spots Location: Vision Worsened by: Standing up Relieved by: Nothing Narrative Narrative: Patient presents with episode at work today. Patient states he laid down and stretch his back. Patient states that when he stood up he started seeing spots. Patient denies any syncopal episode. Patient states he has had similar episodes while he was exercising in the past but related it to strenuous activity. Patient denies any chest pain or palpitations. Patient denies any shortness of breath or cough. Patient denies any headaches. Patient states he did have an episode of nausea and vomiting. Patient states that he vomited stomach contents. Patient denies any hematemesis or coffee-ground emesis. Patient denies any diarrhea, melena, or hematochezia. [facility] Medical History (Updated 06/25/24 @ 13:[address] Prosper Nava DO) Gout Home Medications ?Medication ?Instructions ?Recorded ?Last Taken ?Type ondansetron 4 mg disintegrating 4 mg PO Q8H PRN PRN Nausea #10 tabs 06/02/22 Unknown Rx tablet cephalexin 500 mg capsule 500 mg PO Q6 #40 CAPSULES 01/27/23 Unknown Rx doxycycline monohydrate 50 mg 50 mg PO DAILY 01/27/23 Unknown History capsule Allergy/AdvReac Type Severity Reaction Status Date / Time No Known Allergies Allergy Verified 06/25/24 11:34 Surgical History History of hernia repair History of tonsillectomy Social History Smoking Status: Current some day smoker tobacco type: cigarettes ROS ROS ED Constitutional Constitutional ED: Reports chills and subjective; Denies fever(s) Eyes Eyes: Reports change in vision bilateral; Denies blurry vision or diplopia ENT ENT ED: Denies rhinorrhea or sore throat Cardiovascular Cardiovascular: Denies chest pain or palpitations Respiratory/Chest Respiratory/Chest: Denies cough or dyspnea Gastrointestinal Gastrointestinal: Reports nausea and vomiting Genitourinary Genitourinary ED: Denies dysuria or hematuria Musculoskeletal Musculoskeletal: Denies back pain or neck pain Integumentary Denies abscess or rash Neurologic Neurologic: Denies headache(s) or weakness Allergic/Immunologic Allergic/Immunologic ED: Denies mouth swelling or urticaria EXAM Physical Exam Const Vital Signs: 06/25/24 11:33 06/25/24 12:57 Temperature 96.9 F L Temperature Source Temporal Pulse Rate 78 Pulse Rate [Lying] 73 Pulse Rate [Sitting (for 1 minute prior to obtaining)] 74 Pulse Rate [Standing (for 1 minute prior to obtaining)] 77 Respiratory Rate 16 Blood Pressure 122/64 H Blood Pressure [Lying] 110/60 Blood Pressure [Sitting (for 1 minute prior to obtaining)] 121/87 H Blood Pressure [Standing (for 1 minute prior to obtaining)] 134/88 H Blood Pressure Mean 83 Blood Pressure Mean [Lying] 76 Blood Pressure Mean [Sitting (for 1 minute prior to obtaining)] 98 Blood Pressure Mean [Standing (for 1 minute prior to obtaining)] 103 Pulse Ox 98 Oxygen Delivery Method Room Air Positive well nourished and well developed General Appearance ED: well developed and NAD HEENT Reports moist mucous membranes Eyes PERRL and EOMs intact bilaterally Neck supple and no JVD Resp normal respiratory effort and clear to auscultation bilaterally Cardio regular rate and regular rhythm GI non-tender and non-distended Palpation: soft Back/Spine no CVA tenderness Thoracic Spine / Upper Back: Negative for thoracic spinal tenderness Lumbar Spine / Lower Back: Negative for lumbar spinal tenderness Extremity normal to inspection General Extremety ED: Negative for edema or tenderness General Extremity: Negative for edema Neuro oriented x3, CN's II-XII intact bilaterally and no sensory deficits noted Sensorium / Orientation: alert Motor Exam: strength 5/5 throughout Psych mental status grossly normal MDM MDM MDM Narrative Medical decision making narrative: Differential diagnosis includes orthostatic hypotension, cardiac dysrhythmia, cardiac ischemia, electrolyte abnormality, dehydration, and viral illness. CBC will be obtained to assess for leukocytosis and anemia. Basic metabolic profile will be obtained to assess for electrolyte abnormality and renal function. COVID-19, influenza, and RSV PCR will be obtained to assess for viral illness. Orthostatic vital signs will be obtained to assess for orthostatic hypotension and dehydration. EKG will be obtained to assess for cardiac dysrhythmia and cardiac ischemia. Lab Data Attestation: I reviewed the patient's lab results. Lab results narrative: CBC was reviewed and was within normal limits. Basic metabolic profile was reviewed and was within normal limits. COVID-19 PCR was reviewed and was positive. Influenza PCR was reviewed and was negative for influenza A and influenza B. RSV PCR was reviewed and was negative. Labs: Laboratory Results - last 24 hr 06/25/24 12:20 WBC 6.5 RBC 4.94 Hgb 14.2 Hct 41.8 MCV 84.6 MCH 28.7 MCHC 34.0 RDW Std Deviation 38.9 RDW Coeff of Estefani 12.8 Plt Count 186 MPV 10.7 Immature Gran % (Auto) 0.300 Neut % (Auto) 75.1 H Lymph % (Auto) 12.6 L [place] % (Auto) 9.8 Eos % (Auto) 1.6 Baso % (Auto) 0.6 Absolute Neuts (auto) 4.9 Absolute Lymphs (auto) 0.81 L Nucleated RBC % 0 Sodium 137 Potassium 4.1 Chloride 105 Carbon Dioxide 28.0 Anion Gap 4 L BUN 14 Creatinine 1.06 Estim Creat Clear Calc 105.80 Est GFR (MDRD) Af Amer 98 Est GFR (MDRD) Non-Af 81 BUN/Creatinine Ratio 13.2 Glucose 90 Calcium 9.0 EKG Initial EKG: Attestation: I personally reviewed and interpreted this EKG as follows: Interpretation: Sinus Rhythm (73) and No Acute Injury Pattern Comments: EKG was obtained. On my independent interpretation, it showed a normal sinus rhythm with a rate of 73. NV interval, QRS interval, and QTc intervals were all normal. [place] was normal. There are no acute ST or T wave changes. Prior EKG tracings: available for review Prior: Unchanged (05/30/2020) Treatment and Re-Evaluation :: Orthostatic vital signs were obtained and were within normal limits. Patient was advised of his findings. Patient was instructed to wear a mask. Patient was instructed to drink plenty of fluids. Patient was instructed to follow-up with his primary care physician in 5 to 7 days. Patient understood and was agreeable with the plan. All questions were answered. Discharge Plan Triage Chief Complaint: Nausea/Vomiting ED Provider: Prosper Nava Dx/Rx/DC Orders Clinical Impression: COVID-19, Elevated blood pressure reading, Marijuana use Instructions: Coronavirus Disease 2019 (COVID-19): Overview Prescriptions: No Action ondansetron 4 mg tablet,disintegrating 4 mg PO Q8H PRN PRN (Reason: Nausea) Qty: 10 0RF doxycycline monohydrate 50 mg capsule 50 mg PO DAILY Patient Comments: TAKE 1 CAPSULE BY MOUTH ONCE DAILY WITH FOOD cephalexin [cephalexin] 500 mg capsule 500 mg PO Q6 Qty: 40 0RF Stand Alone Forms: ED Work / School Excuse Primary Care Provider: Care Physician,No Primary Referrals: Beverley Ovalles MD [Med Staff - Active Staff] - 5-7 Days Care Physician,No Primary [Primary Care Provider] - Print Language: Upper Sorbian Disposition Disposition: Home, Self Care
--- NOTE | 2024-06-25 12:03 | EKG12_ITS ---
Test Reason : Blood Pressure : */* mmHG Vent. Rate : 73 BPM Atrial Rate : 73 BPM P-R Int : 160 ms QRS Dur : 96 ms QT Int : 372 ms P-R-T Axes : 38 9 11 degrees QTcB Int : 409 ms Normal sinus rhythm Normal ECG Confirmed by MAGDA BRICEÑO, SCOTT ([id number]), news assignment editor ADRIEN CHAPPELL ([id number]) on 06/28/2024 6:35:16 AM Referred By: Confirmed By: SCOTT MAN MD
[2024-06-25 12:47] LABS: Absolute Lymphocyte Count 0.81 X10^3/uL (0.83-4.51); Absolute Neutrophil Count 4.9 X10^3/uL (2.0-7.7); Basophil# 0.04 X10^3/uL; Basophil% 0.6 % (0-1); Eosinophils% 1.6 % (0-5); Hematocrit 41.8 % (40-54); Hemoglobin 14.2 g/dL (13.0-16.5); Lymphocyte # 0.81 X10^3/ul (0.83-4.51); Lymphocyte % 12.6 % (19-41); Mean Corpuscular Hgb 28.7 pg (27.0-32.0); Mean Corpuscular Volume 84.6 fL (80-94); Mean Platelet Vol. 10.7 fl (6.2-12.0); Monocyte# 0.63 X10^3/uL; Monocyte% 9.8 % (0-10); NRBC Flagged by Analyzer 0 % (0-5); Neutrophil # 4.85 X10^3/uL (2.7-7.7); Neutrophil % 75.1 % (47-70); Platelet Count 186 K/mm3 (150-450); RBC Distribution Width CV 12.8 % (11.6-14.6); RBC Distribution Width SD 38.9 fl (35.1-43.9); Red Blood Count 4.94 M/mm3 (4.6-6.2); White Blood Count 6.5 K/mm3 (4.4-11.0)
[2024-06-25 12:50] LABS: Anion Gap 4 (5-15); BUN 14 mg/dL (7-18); BUN/Creat Ratio 13.2 RATIO (10-20); Chloride 105 mmol/L (98-107); Creatinine, Serum 1.06 mg/dL (0.70-1.30); EST Glomerular Filtration Rate 81 mL/min (>60); Est Glom Filt Rate - Afr Amer 98 mL/min (>60); Glucose 90 mg/dL (74-106); Potassium 4.1 mmol/L (3.5-5.1); Sodium Level 137 mmol/L (136-145)
[2024-06-25 12:57] VITALS: BP 110/60; BP 121/87; BP 134/88; PULSE 73; PULSE 74; PULSE 77
[2024-06-25 13:45] VITALS: BP 122/70; PULSE 76; RESP 18; TEMP 36.7; O2SAT 100
--- NOTE | 2024-06-25 13:53 | CM.ED ---
Social work Reason for referral: no PCP Referral source: case find This SW identified patient?s lack of PCP and insurance. SW entered patient?s room and introduced self and role at [facility]. Patient welcomed SW visit, stating patient was presenting to the ED with dizziness that had been present for about 2 months. Patient stated he was ?stubborn,? but decided to come in to get evaluated. Patient stated he has also been wondering if patient is becoming diabetic because his ?toes have been changing color.? Patient stated he has also had situations where his body will get ?cold chills? and patient states he will pass out. Patient stated he did update the doctor on all of these issues. Patient confirmed not having a PCP due to not having insurance. Patient stated he had applied for Medicaid in the past, but accepted resource of how to apply for Medicaid should patient want to pursue this again. SW also provided resources of [facility] Provider Directory and Madelaine Hendricks information. Patient asked specifically about podiatry resources due to limping often. Patient was shown in the [facility] Provider Directory where to find podiatrists. Patient denied further needs at this time. Ema Navarrete, MAILROOM PERSONNEL, BATTER MIXER HELPER
== END 2024-06-25 13:45 | disposition home or self-care (01) ==
PROVIDERS: Emergency Provider Emergency Medicine; Visit Provider Emergency Medicine
DX: U07.1 COVID-19 (principal); R03.0 Elevated blood-pressure reading, without diagnosis of hypertension; F12.90 Cannabis use, unspecified, uncomplicated; F17.210 Nicotine dependence, cigarettes, uncomplicated
CPT/HCPCS: 80048; 85025; 87631; 93005; 99285; A4216

== ENCOUNTER 2024-08-27 07:33 | Emergency (ER) | payer SELFPAY ==
[2024-08-27 07:35] VITALS: BP 118/70; PULSE 72; RESP 16; TEMP 36.1; O2SAT 100; BMI 34.8
--- NOTE | 2024-08-27 07:58 | CT_ITS ---
PROCEDURE: CT ABDOMEN AND PELVIS WITH IV CONTRAST REASON FOR EXAM: DIVERTICULITIS. BRIGHT RED BLOOD TODAY. TECHNIQUE: Contiguous axial scans of 3.75 mm slice thicknesses. Sagittal and coronal reconstruction images were obtained. One or more dose reduction techniques were used (e.g., automated exposure control, adjustment of mA and/or kv according to patient size, use of iterative reconstruction technique). IV CONTRAST: Isovue 370. 98 mL. COMPARISON: None. FINDINGS: Lung bases: Clear Liver: Small hypodense micro nodules in the right hepatic lobe, largest measuring 0.6 cm on axial image 29 Gallbladder: Unremarkable. Spleen: Unremarkable. Small splenule, axial image 34. Pancreas: Unremarkable. Adrenals: Unremarkable. Kidneys: Unremarkable. Bladder: Unremarkable. Reproductive Organs: Unremarkable. Bowel: Diverticulosis without signs of diverticulitis, sigmoid colon. Appendix: Normal. Lymph nodes: No suspicious lymph node enlargement. Vasculature: Major vascular structures are unremarkable. Phleboliths in the pelvis. Peritoneum / Retroperitoneum: No ascites. No free air. Anterior abdominal wall: Surgical clips in the right anterior abdomen. Left- sided fat containing inguinal hernia. Bones: Unremarkable. CT/Abdomen/Pelvis W IV Cont ONLY IMPRESSION: 1. Diverticulosis without signs of diverticulitis, sigmoid colon. 2. Hypodense nodules in the right hepatic lobe, most likely cysts or hemangiom as. 3. Small splenule. Reading Location: [facility]
--- NOTE | 2024-08-27 08:00 | EDS_ITS ---
HPI HPI - GI History of Present Illness Chief Complaint: GI Bleed Informant: patient Narrative Narrative: 43-year-old male presenting to the emergency room with blood in stool. Patient states that for a little over a year he has been actively losing weight. He states that he has changed his diet and has begun working out more. He tends to avoid gluten. Last night before bedtime though he did eat a couple uncrustable sandwiches. He states this morning he is felt bloated which was not uncommon for him when he eats gluten. He states he had a bowel movement and when he got up noticed that there was a large amount of bright red blood. He notes that he feels like he needs to have another bowel movement. He denies any rectal pain. He denies any abdominal pain. He denies prior history of diverticulitis lower GI bleeding or hemorrhoidal disease. He notes that yesterday he had quite a few bowel movements and stated that his anus was uncomfortable due to the wiping but did not see any blood. [facility] Medical History Gout Home Medications ?Medication ?Instructions ?Recorded ?Last Taken ?Type NK 08/27/24 Unknown History Allergy/AdvReac Type Severity Reaction Status Date / Time No Known Allergies Allergy Verified 08/27/24 07:34 Surgical History History of hernia repair History of tonsillectomy Social History Smoking Status: Current some day smoker tobacco type: cigarettes ROS ROS ED Constitutional Constitutional ED: Denies chills, fever(s) or weight loss Eyes Eyes: Denies change in vision or diplopia ENT ENT ED: Denies ear pain, rhinorrhea or sore throat Cardiovascular Cardiovascular: Denies chest pain, orthopnea, palpitations or racing heartbeat Respiratory/Chest Respiratory/Chest: Denies cough, dyspnea or orthopnea Gastrointestinal Gastrointestinal: Reports other Details: BRBPR Bloating ; Denies abdominal pain, diarrhea, nausea or vomiting Genitourinary Genitourinary ED: Denies dysuria, hematuria or urinary frequency Musculoskeletal Musculoskeletal: Denies arthralgias or myalgias Integumentary Denies abscess or rash Neurologic Neurologic: Denies headache(s) or weakness Psychiatric Psychiatric: Denies anxiety, depression, suicidal ideation or suicidal thoughts Endocrine Endocrinology: Denies polydipsia, polyphagia or polyuria Allergic/Immunologic Allergic/Immunologic ED: Denies mouth swelling, tongue swelling or urticaria EXAM Physical Exam Const Vital Signs: 08/27/24 07:35 Temperature 97 F L Temperature Source Temporal Pulse Rate 72 Respiratory Rate 16 Blood Pressure 118/70 Blood Pressure Mean 86 Pulse Ox 100 Oxygen Delivery Method Room Air Positive well nourished and well developed General Appearance ED: well developed and NAD HEENT Reports normocephalic, head/scalp atraumatic and moist mucous membranes Eyes PERRL and EOMs intact bilaterally Neck no lymphadenopathy, supple and no JVD Resp normal respiratory effort and clear to auscultation bilaterally Cardio regular rate, regular rhythm and no murmurs GI normal to inspection, nondistended, normoactive bowel sounds and non-tender Palpation: soft Narrative: Rectal exam with no hemorrhoidal disease. No anal fissures noted. No blood on glove exam Back/Spine no CVA tenderness and normal ROM Extremity normal to inspection General Extremety ED: Negative for edema General Extremity: Negative for edema Neuro oriented x3 and CN's II-XII intact bilaterally Sensorium / Orientation: alert Motor Exam: strength 5/5 throughout Psych mental status grossly normal Mood & Affect: Negative for depressed or tearful Skin no rashes or lesions noted and no wounds MDM MDM MDM Narrative Medical decision making narrative: Differential diagnosis includes but not limited to anal fissure internal/external hemorrhoids diverticular disease AVM colitis gluten intolerance Patient's white count 5.7 hemoglobin stable at 14.1 platelet count 199. BMP within normal limits. CT abdomen pelvis demonstrates diverticulosis but no obvious colitis or diverticulitis. Patient is not had any further bleeding. Rectal exam does not suggest fissure. The patient most likely either has internal hemorrhoidal bleeding or diverticular bleeding. Would recommend outpatient follow-up. We talked about diet as well as avoidance of using the foam while on the toilet. Patient to monitor follow-up return if worsening or concerns History & Record Review Discussion w/independent historian: Patient Lab Data Attestation: I reviewed the patient's lab results. Labs: Laboratory Results - last 24 hr 08/27/24 08:07 WBC 5.7 RBC 4.87 Hgb 14.1 Hct 41.4 MCV 85.0 MCH 29.0 MCHC 34.1 RDW Std Deviation 39.8 RDW Coeff of Estefani 13.0 Plt Count 199 MPV 10.8 Immature Gran % (Auto) 0.500 Neut % (Auto) 50.8 Lymph % (Auto) 34.6 [place] % (Auto) 9.7 Eos % (Auto) 3.9 Baso % (Auto) 0.5 Absolute Neuts (auto) 2.9 Absolute Lymphs (auto) 1.97 Nucleated RBC % 0 Sodium 141 Potassium 4.1 Chloride 110 H Carbon Dioxide 25.0 Anion Gap 6 BUN 22 H Creatinine 0.90 Estim Creat Clear Calc 123.65 Est GFR (MDRD) Af Amer 118 Est GFR (MDRD) Non-Af 98 BUN/Creatinine Ratio 24.5 H Glucose 99 Calcium 8.8 Radiography Diagnostic Testing: Clinical Impression(s) from Imaging Studies Abdomen/Pelvis CT 08/27/24 07:58 IMPRESSION: 1. Diverticulosis without signs of diverticulitis, sigmoid colon. 2. Hypodense nodules in the right hepatic lobe, most likely cysts or hemangiomas. 3. Small splenule. Reading Location: [facility] Discharge Plan Triage Chief Complaint: GI Bleed ED Provider: Elio Mc Dx/Rx/DC Orders Clinical Impression: Acute lower gastrointestinal bleeding Instructions: ED Hemorrhoids, ED Lower GI Bleeding (Stable), ED Diverticulosis Prescriptions: No Action NK Primary Care Provider: Care Physician,No Primary Referrals: Friend,Mendel, DO [Med Staff - Active Staff] - As soon as possible (for colonoscopy evaluation) Care Physician,No Primary [Primary Care Provider] - Print Language: Luxembourgish Disposition Disposition: Home, Self Care
[2024-08-27 08:27] LABS: Absolute Lymphocyte Count 1.97 X10^3/uL (0.83-4.51); Absolute Neutrophil Count 2.9 X10^3/uL (2.0-7.7); Basophil# 0.03 X10^3/uL; Basophil% 0.5 % (0-1); Eosinophil# 0.22 X10^3/uL; Eosinophils% 3.9 % (0-5); Hematocrit 41.4 % (40-54); Hemoglobin 14.1 g/dL (13.0-16.5); Lymphocyte # 1.97 X10^3/ul (0.83-4.51); Lymphocyte % 34.6 % (19-41); Mean Corp Hgb Conc 34.1 g/dL (32-36); Mean Platelet Vol. 10.8 fl (6.2-12.0); Monocyte# 0.55 X10^3/uL; Monocyte% 9.7 % (0-10); NRBC Flagged by Analyzer 0 % (0-5); Neutrophil # 2.89 X10^3/uL (2.7-7.7); Neutrophil % 50.8 % (47-70); Platelet Count 199 K/mm3 (150-450); RBC Distribution Width SD 39.8 fl (35.1-43.9); Red Blood Count 4.87 M/mm3 (4.6-6.2); White Blood Count 5.7 K/mm3 (4.4-11.0)
[2024-08-27 08:35] LABS: Anion Gap 6 (5-15); BUN 22 mg/dL (7-18); BUN/Creat Ratio 24.5 RATIO (10-20); Calcium,Total 8.8 mg/dL (8.5-10.1); Chloride 110 mmol/L (98-107); EST Glomerular Filtration Rate 98 mL/min (>60); Est Glom Filt Rate - Afr Amer 118 mL/min (>60); Estimated Creatinine Clearance 123.65 ml/min; Glucose 99 mg/dL (74-106); Potassium 4.1 mmol/L (3.5-5.1); Sodium Level 141 mmol/L (136-145)
[2024-08-27 10:16] VITALS: BP 126/78; PULSE 64; RESP 18; TEMP 36.9; O2SAT 97
== END 2024-08-27 10:17 | disposition home or self-care (01) ==
PROVIDERS: Emergency Provider Emergency Medicine; Visit Provider Emergency Medicine
DX: K57.31 Diverticulosis of large intestine without perforation or abscess with bleeding (principal); F17.210 Nicotine dependence, cigarettes, uncomplicated
CPT/HCPCS: 74177; 80048; 85025; 99282; Q9967; A4216

== ENCOUNTER 2025-06-22 13:08 | Emergency (ER) | payer SELFPAY ==
[2025-06-22] VITALS (13 sets, daily range): BP systolic 103–150; BP diastolic 68–81; PULSE 63–86; RESP 15–16; TEMP 36.1; O2SAT 97–100; BMI 37.0
[2025-06-22 15:49] LABS: Hematocrit 42.1 % (40-54); Hemoglobin 14.7 g/dL (13.0-16.5); Immature Granulocytes Count 0.010 X10^3/uL (0.0-0.0); Mean Corp Hgb Conc 34.9 g/dL (32-36); Mean Corpuscular Volume 84.4 fL (80-94); Mean Platelet Vol. 10.8 fl (6.2-12.0); NRBC Flagged by Analyzer 0 % (0-5); Platelet Count 193 K/mm3 (150-450); RBC Distribution Width CV 12.7 % (11.6-14.6); RBC Distribution Width SD 38.9 fl (35.1-43.9); Red Blood Count 4.99 M/mm3 (4.6-6.2); White Blood Count 5.6 K/mm3 (4.4-11.0)
[2025-06-22 16:03] LABS: Prothrombin Time (Protime)PT. 12.8 SECONDS (11.7-14.9)
--- NOTE | 2025-06-22 16:28 | EX.ED.DYSGE1 ---
HPI History of Present Illness Chief Complaint: GI Bleed Narrative Narrative: Patient was seen and examined after presenting to ED for multiple episodes of blood in stool states that this has happened before where it was 1 time was found to have internal hemorrhoids not on blood thinners states he does not take any medications whatsoever came in today because he had 3 or 4 episodes of blood in the stool no abdominal pain no other reported symptoms besides episode of nausea. [facility] Medical History Gout Home Medications ?Medication ?Instructions ?Recorded ?Last Taken ?Type NK 08/27/24 Unknown History Allergy/AdvReac Type Severity Reaction Status Date / Time No Known Allergies Allergy Verified 06/22/25 13:10 Surgical History History of hernia repair History of tonsillectomy Social History Smoking Status: Current some day smoker tobacco type: cigarettes ROS ROS ED ROS Narrative Pertinent Positives: Multiple episodes of blood in stool with history of internal hemorrhoids did report that there has been some nausea Pertinent Negatives: Fevers chills abdominal pain vomiting diarrhea anticoagulation chest pain shortness of breath The remainder of review of systems negative unless otherwise stated in the HPI above. Systems reviewed including constitutional, psychiatric, cardiovascular, respiratory, integument, HENT, gastrointestinal. EXAM Physical Exam Narrative Exam Narrative: Afebrile hemodynamically stable does not appear toxic or in distress normocephalic atraumatic abdomen is soft nontender nondistended no palpable pulsatile mass is intact and equal MSPs. Chaner corporate recycling manager present in the room to do a rectal exam there was no leonel blood or any sort of gross findings. No visible external hemorrhoids no evidence of melena Const Vital Signs: 06/22/25 13:09 06/22/25 15:30 06/22/25 15:54 Temperature 97 F L Temperature Source Temporal Pulse Rate 86 68 Respiratory Rate 16 15 Blood Pressure 150/81 H 124/79 H Blood Pressure Mean 104 94 Pulse Ox 98 99 99 Oxygen Delivery Method Room Air Room Air 06/22/25 16:00 06/22/25 16:15 06/22/25 16:30 Temperature Temperature Source Pulse Rate 63 Respiratory Rate Blood Pressure 105/68 104/68 Blood Pressure Mean 80 79 Pulse Ox 97 98 98 Oxygen Delivery Method 06/22/25 16:45 06/22/25 17:00 Temperature Temperature Source Pulse Rate Respiratory Rate Blood Pressure 103/77 Blood Pressure Mean 87 Pulse Ox 100 98 Oxygen Delivery Method MDM MDM MDM Narrative Medical decision making narrative: Nursing notes, triage notes, available previous documentation, and vital signs were reviewed. Any discrepancies noted were addressed. Differential Diagnoses: Could be internal hemorrhoids could be a subtle GI bleed no evidence of fissures does not seem to be consistent with diverticulitis either Interventions: Zofran Labs Reviewed: I fob for Hemoccult was positive for blood hemoglobin is 14.7 platelets are 193 no coagulopathy. Electrolytes are otherwise appropriate no renal insufficiency no transaminitis. Imaging Reviewed: Considered but not clinically indicated at this time Previous Documentation Reviewed: None available or applicable at this time. ED Course: Patient presenting with 3-4 bloody bowel movements has history of internal hemorrhoids so far labs are unremarkable CMP is still pending no gross blood on evaluation but was Hemoccult positive. 1804: Patient's labs are unremarkable did discuss with the patient most likely internal hemorrhoids he is hemodynamically stable. Return precautions follow-up recommendations provided he is stable for discharge home This note was made utilizing voice recognition software. All attempts were made to correct spelling or other errors prior to note completion. However, due to the fast-paced nature of emergency medicine, some errors may still be present. Lab Data Labs: Laboratory Results - last 24 hr 06/22/25 15:40 WBC 5.6 RBC 4.99 Hgb 14.7 Hct 42.1 MCV 84.4 MCH 29.5 MCHC 34.9 RDW Std Deviation 38.9 RDW Coeff of Estefani 12.7 Plt Count 193 MPV 10.8 Immature Gran % (Auto) 0.200 Neut % (Auto) 53.9 Lymph % (Auto) 35.1 Hayes % (Auto) 7.3 Eos % (Auto) 3.0 Baso % (Auto) 0.5 Absolute Neuts (auto) 3.0 Absolute Lymphs (auto) 1.98 Nucleated RBC % 0 PT 12.8 INR 0.9 Sodium 137 Potassium 4.1 Chloride 101 Carbon Dioxide 25.1 Anion Gap 10 BUN 14 Creatinine 0.93 Estim Creat Clear Calc 122.15 Est GFR (MDRD) Non-Af 103 BUN/Creatinine Ratio 15.2 Glucose 93 Calcium 9.2 Total Bilirubin 0.41 AST 24 ALT 28 Alkaline Phosphatase 45 Total Protein 7.2 Albumin 4.4 Globulin 2.8 Albumin/Globulin Ratio 1.6 Blood Type A POSITIVE Antibody Screen NEGATIVE Discharge Plan Triage Chief Complaint: GI Bleed ED Provider: Bill Rodriguez Dx/Rx/DC Orders Clinical Impression: Blood in stool, Internal hemorrhoid, bleeding Instructions: Understanding Rectal Bleeding, ED Hemorrhoids Prescriptions: No Action NK Primary Care Provider: Care Physician,No Primary Referrals: Brittany Osullivan MD [Med Staff - Delivery Analyst, Internal Medicine] - As soon as possible Care Physician,No Primary [Primary Care Provider, Medical] Activity Restrictions/Additional Instructions: Be sure to follow-up with your primary care doctor if you are having worsening symptoms do not hesitate to return Print Language: Swedish Disposition Disposition: Home, Self Care
[2025-06-22 16:29] LABS: AST(SGOT) 24 U/L (<=37); Alanine Aminotransfer ALT/SGPT 28 U/L (<=46); Albumin, Serum 4.4 g/dL (3.5-5.0); Alkaline Phosphatase 45 U/L (40-129); Anion Gap 10 (5-15); BUN 14 mg/dL (4-19); BUN/Creat Ratio 15.2 RATIO (10-20); Calcium,Total 9.2 mg/dL (7.6-11.0); Carbon Dioxide 25.1 mmol/L (21.0-32.0); Chloride 101 mmol/L (98-108); Estimated Creatinine Clearance 122.15 ml/min (50-250); Globulin 2.8 g/dL (2.2-4.2); Glucose 93 mg/dL (70-99); Potassium 4.1 mmol/L (3.3-5.1)
== END 2025-06-22 18:23 | disposition home or self-care (01) ==
PROVIDERS: Emergency Provider Specialist/Technologist Athletic Trainer; Visit Provider Specialist/Technologist Athletic Trainer
DX: K64.8 Other hemorrhoids (principal); F17.210 Nicotine dependence, cigarettes, uncomplicated
CPT/HCPCS: 80053; 82274; 85025; 85610; 86850; 86900; 86901; 99283; A4216; J2405